=== PATIENT | male | born 2000 | race Native Hawaiian/Other Pacific Islander ===

== ENCOUNTER 2021-01-20 22:52 | Emergency (ER) | payer OTHER ==
[~2021-01-20] VITALS: Ht 172.7 cm; Wt 59.0 kg
[2021-01-20 22:52] VITALS: TEMP 98.7
[2021-01-21 00:17] LABS: PLATELET COUNT 224 K/uL (142-355)
[2021-01-21 01:44] VITALS: BP 109/53
== END 2021-01-21 01:44 ==
LOC: ED 22:52
PROVIDERS: Family Medicine
DX: S20.212A Contusion of left front wall of thorax, initial encounter (principal); F19.10 Other psychoactive substance abuse, uncomplicated; W18.39XA Other fall on same level, initial encounter; Y92.238 Other place in hospital as the place of occurrence of the external cause
CPT/HCPCS: 36415; 80053; 80320; 85027; 99283